=== PATIENT | male | born 1960 | race Hispanic/Latino ===

== ENCOUNTER 2018-07-13 21:49 | Emergency (ER) | payer MEDICAID ==
[2018-07-13] MEDS ORDERED: FENTANYL CITRATE PF 50 MCG/1 ML 2ML VIAL ONE (22:22)
[2018-07-13 22:26] LABS: BASOPHILS % (AUTO) 1.5 % (0.0-5.0); EOSINOPHILS % (AUTO) 3.2 % (0.0-8.0); HEMATOCRIT 43.4 % (42-54); LYMPHOCYTES % (AUTO) 23.4 % (21.0-51.0); MEAN CORPUSCULAR HEMOGLOBIN 31.6 pg (27.0-33.0); MEAN CORPUSCULAR HGB CONC 33.9 g/dL (32.0-36.0); MEAN CORPUSCULAR VOLUME 93.3 fL (79-99); MONOCYTES % (AUTO) 10.5 % (3.0-13.0); NEUTROPHILS % (AUTO) 61.4 % (40.0-77.0); PLATELET COUNT (AUTO) 270 K/uL (130-400); RED BLOOD CELL COUNT(AUTO) 4.65 MIL/uL (4.50-6.20); RED CELL DISTRIBUTION WIDTH 13.5 % (11.0-15.5); WHITE BLOOD COUNT (AUTO) 12.2 K/uL (4.8-10.8)
[2018-07-13 22:43] LABS: CREATININE 1.8 mg/dL (0.5-1.5); POTASSIUM 3.7 mmol/L (3.5-5.1)
[2018-07-13 22:48] LABS: ALBUMIN 3.7 g/dL (3.5-5.0); BILIRUBIN,TOTAL 0.2 mg/dL (0.2-1.0); TOTAL PROTEIN, SERUM 8.2 g/dL (6.0-8.3)
[2018-07-13] MEDS ORDERED: KETOROLAC TROMETHAMINE 15MG/ML ONE (23:19)
[2018-07-13 23:28] LABS: APPEARANCE,URINE Clear (CLEAR); BILIRUBIN,URINE Negative (NEGATIVE); COLOR,URINE Yellow (YELLOW); GLUCOSE, URINE (UA) Negative (NEGATIVE); KETONES,URINE Negative (NEGATIVE); LEUKOCYTE ESTERASE ,URINE Negative (NEGATIVE); NITRATE,URINE Negative (NEGATIVE); OCCULT BLOOD,URINE Negative (NEGATIVE); PROTEIN,URINE Negative (NEGATIVE)
[2018-07-14] MEDS ORDERED: ORPHENADRINE CITRATE 30 MG/ML ML ONE (00:49)
== END 2018-07-14 02:04 | disposition left against medical advice (07) ==
LOC: EDH 21:49
DX: R10.9 Unspecified abdominal pain (principal); R07.89 Other chest pain; I10 Essential (primary) hypertension; R31.9 Hematuria, unspecified; E78.00 Pure hypercholesterolemia, unspecified; F32.9 Major depressive disorder, single episode, unspecified; Z88.0 Allergy status to penicillin; Z88.6 Allergy status to analgesic agent; Z87.442 Personal history of urinary calculi
CPT/HCPCS: 36415; 71046; 74176; 80053; 81003; 82550; 83690; 84484; 85025; 85378; 87804 ×2; 93005; 96374; 96375; 99285; J1885; J2360; J3010

== ENCOUNTER → 2018-12-25 | Outpatient (CLI) | payer MEDICAID ==
--- NOTE | 2018-12-25 13:03 | NUR ---
MBSS COMPLETE. -S/S OF ASPIRATION. RECOMMEND REGULAR, THIN LIQUID DIET; PILLS WHOLE WITH LIQUIDS. PATIENT INFORMATION: Pt IS A 58 Y.O. MALE REFERRED FOR AN MBSS SECONDARY TO C/O DIFFICULTY SWALLOWING LIQUIDS. Pt SERVED THE PRIMARY INFORMANT FOR MEDICAL AND SOCIAL HISTORY. Pt DESCRIBES SWALLOWING DIFFICULTY LIQUIDS COMING BACK UP AFTER HE SWALLOWS. PT REPORTS A PAST MEDICAL HISTORY SIGNIFICANT FOR GERD, MENTAL ILLNESS, ARTHRITIS, KIDNEY STONES, AND SD. MBSS INTERPRETATION: SWALLOW FUNCTION AND EFFICIENCY WITHIN FUNCTIONAL LIMITS. ORAL MOTOR STRENGTH, COORDINATION, AND ROM WITHIN FUNCTIONAL LIMITS. LARYNGEAL ELEVATION/EXCURSION STRONG WITH TIMELY PHARYNGEAL RESPONSE. NO OVERT SIGNS OR SYMPTOMS OF ASPIRATION PRESENT DURING MBSS. A-P VIEW: NO BOLUS REFLUX NOTED. TRIALS: 1. TSP PUREED: GOOD 2. TSP PUDDING: GOOD 3. TSP MIXED: GOOD 4. COOKIE: GOOD 5. CUP SIP THIN LIQUIDS: GOOD 6. A-P VIEW: GOOD RECOMMENDATIONS: 1. REGULAR TEXTURE, THIN LIQUID DIET; PILLS WHOLE WITH LIQUIDS. 2. COMPENSATORY STRATEGIES (PROPHYLAXIS): *SEATED AT 90 DEGREE ANGLE *REMAIN UPRIGHT 30 MINUTES AFTER MEAL TIMES 3. GI CONSULT DUE TO Pt'S DESCRIBED DIFFICULTY WITH FOOD "COMING BACK UP" G-CODES SWALLOWING: [id number] Addendum: 12/25/18 at 1312 by PAPI MAGANA [facility] Amended: Links added.
== END | disposition home or self-care (01) ==
LOC: RAH 09:44
PROVIDERS: ATTEND Internal Medicine Gastroenterology
DX: R13.12 Dysphagia, oropharyngeal phase (principal)
CPT/HCPCS: 74230; 92611

== ENCOUNTER 2023-05-14 17:51 | Emergency (ER) | payer MEDICAID ==
[~2023-05-14] VITALS: Ht 165.1 cm; Wt 54.9 kg
[2023-05-14] MEDS ORDERED: MAGNESIUM 2GM PREMIX 50ML 50 ML IV ONE (18:30)
[2023-05-14 19:09] VITALS: BP 135/75; PULSE 48; RESP 16
[2023-05-14] MEDS ORDERED: KETOROLAC 60 MG VIAL (30MG/ML) IM ONE (20:30)
[2023-05-14 20:52] LABS: ADD UA MICROSCOPIC YES; APPEARANCE,URINE CLEAR (CLEAR); BILIRUBIN,URINE NEGATIVE (NEGATIVE); COLOR,URINE LIGHT-YELLOW (YELLOW); GLUCOSE, URINE (UA) NEGATIVE (NEGATIVE); KETONES,URINE NEGATIVE (NEGATIVE); LEUKOCYTE ESTERASE ,URINE NEGATIVE Leu/uL (NEGATIVE); NITRATE,URINE NEGATIVE (NEGATIVE); PH,URINE 5.5 (5.0-8.0); PROTEIN,URINE NEGATIVE (NEGATIVE); UROBILINOGEN,URINE 0.2 mg/dL (0.2-1.0)
[2023-05-14 20:58] LABS: MUCUS,URINE RARE LPF (None Seen); SQUAMOUS EPITHELIAL CELL,UR RARE /HPF (0-2)
[2023-05-14 22:17] LABS: BASOPHILS # (AUTO) 0.06 K/uL (0.00-0.20); BASOPHILS % (AUTO) 0.9 % (0.0-5.0); EOSINOPHILS # (AUTO) 0.48 K/uL (0.00-0.70); EOSINOPHILS % (AUTO) 7.5 % (0.0-8.0); HEMATOCRIT 38.2 % (42-54); IMMATURE GRANULOCYTE ABSOLUTE 0.02 K/uL (0-1); LYMPHOCYTES # (AUTO) 1.9 K/uL (1.0-4.8); LYMPHOCYTES % (AUTO) 28.8 % (21.0-51.0); MEAN CORPUSCULAR HEMOGLOBIN 31.9 pg (27.0-33.0); MEAN CORPUSCULAR HGB CONC 34.3 g/dL (32.0-36.0); MEAN CORPUSCULAR VOLUME 92.9 fL (79-99); MONOCYTES # (AUTO) 0.7 K/uL (0.1-1.0); MONOCYTES % (AUTO) 10.6 % (3.0-13.0); NEUTROPHILS # (AUTO) 3.3 K/uL (1.8-7.7); NEUTROPHILS % (AUTO) 51.9 % (40.0-77.0); PLATELET COUNT (AUTO) 172 K/uL (130-400); RED BLOOD CELL COUNT(AUTO) 4.11 MIL/uL (4.50-6.20); RED CELL DISTRIBUTION WIDTH 13.6 % (11.0-15.5); WHITE BLOOD COUNT (AUTO) 6.4 K/uL (4.8-10.8)
[2023-05-14 22:24] LABS: CREATININE 1.1 mg/dL (0.5-1.5); POTASSIUM 4.3 mmol/L (3.5-5.1)
[2023-05-14] MEDS ORDERED: TAMS-1 PO (23:26)
== END 2023-05-14 23:57 | disposition home or self-care (01) ==
LOC: EDH 17:51 → UNDOADMIN 17:52 → EDHIP 17:52 → EDH 23:57
DX: N20.0 Calculus of kidney (principal); Z88.0 Allergy status to penicillin; Z88.5 Allergy status to narcotic agent; F03.90 Unspecified dementia, unspecified severity, without behavioral disturbance, psychotic disturbance, mood disturbance, and anxiety
CPT/HCPCS: 99285; 74176; 80048; 85025; 81001; 36415; 96372; J3475; J1885